=== PATIENT | female | born 1970 | race Caucasian/White ===

== ENCOUNTER → 2022-07-29 | Outpatient (CLI) | payer SELFPAY ==
[2022-07-29 15:51] LABS: Hematocrit 36.6 % (37-47); Hemoglobin 11.4 g/dL (12.0-15.0); Mean Corp Hgb Conc 31.1 g/dL (32-36); Mean Corpuscular Hgb 24.1 pg (27.0-32.0); Mean Corpuscular Volume 77.4 fL (81-99); Mean Platelet Vol. 9.2 fl (6.2-12.0); Platelet Count 210 K/mm3 (150-450); RBC Distribution Width CV 15.9 % (11.6-14.6); RBC Distribution Width SD 44.9 fl (35.1-43.9); Red Blood Count 4.73 M/mm3 (4.2-5.4); White Blood Count 4.8 K/mm3 (4.4-11.0)
[2022-07-29 16:11] LABS: Follicle Stimulating Hormone 24.1 mIU/mL; T4 Free Direct 0.77 ng/dL (0.76-1.46); Thyroid Stim Hormone (TSH) 1.31 uIU/mL (0.358-3.74)
[2022-08-08 14:16] LABS: HPV APTIMA, High Risk Negative (Negative)
== END | disposition home or self-care (01) ==
PROVIDERS: Visit Provider Student in an Organized Health Care Education/Training Program
DX: N93.9 Abnormal uterine and vaginal bleeding, unspecified (principal); Z12.4 Encounter for screening for malignant neoplasm of cervix
CPT/HCPCS: 36415; 83001; 83002; 84439; 84443; 85027; 87624; 88175; G0145

== ENCOUNTER → 2022-08-25 | Outpatient (CLI) | payer SELFPAY ==
[2022-09-01 16:30] LABS: HPV APTIMA, High Risk Negative (Negative)
== END | disposition home or self-care (01) ==
PROVIDERS: Visit Provider Student in an Organized Health Care Education/Training Program
DX: N93.9 Abnormal uterine and vaginal bleeding, unspecified (principal)
CPT/HCPCS: 87624; 88175; G0145

== ENCOUNTER 2022-11-26 05:22 | Day surgery (SDC) | payer SELFPAY, OTHER ==
--- NOTE | 2022-11-23 08:40 | EKG12_ITS ---
Test Reason : PRE-OP Blood Pressure : / mmHG Vent. Rate : 085 BPM Atrial Rate : 085 BPM P-R Int : 162 ms QRS Dur : 078 ms QT Int : 372 ms P-R-T Axes : 052 069 004 degrees QTc Int : 442 ms Normal sinus rhythm Normal ECG Confirmed by MYKE QUIGLEY, ALIX ([id number]), acquisition editor PRINCE ZEE ([id number]) on 11/25/2022 2:07:31 PM Referred By: Idalia Morrell Confirmed By:ALIX STRINGER MD
[2022-11-23 09:34] LABS: Magnesium 2.2 mg/dL (1.6-2.6)
[2022-11-23 10:35] LABS: Hematocrit 36.5 % (37-47); Hemoglobin 11.4 g/dL (12.0-15.0); Mean Corp Hgb Conc 31.2 g/dL (32-36); Mean Corpuscular Hgb 23.7 pg (27.0-32.0); Mean Corpuscular Volume 75.9 fL (81-99); Mean Platelet Vol. 8.9 fl (6.2-12.0); Platelet Count 285 K/mm3 (150-450); RBC Distribution Width CV 16.7 % (11.6-14.6); RBC Distribution Width SD 45.3 fl (35.1-43.9); Red Blood Count 4.81 M/mm3 (4.2-5.4); White Blood Count 8.6 K/mm3 (4.4-11.0)
[2022-11-26] VITALS (10 sets, daily range): BP systolic 103–140; BP diastolic 55–89; PULSE 76–85; RESP 14–18; TEMP 36.2–37.1; O2SAT 94–100; BMI 37.7
--- NOTE | 2022-11-26 | HYST_PTH ---
PATIENT: ZION VÁZQUEZ [place] [facility] [place] U#:[id number] AGE/SX: 52/F ROOM: RE11/26/[address]: Dr. Idalia Morrell, : 1970 BED: DIS: 11/26/2022 SPEC #: [id number] RECD: 11/26/22 13:19 STATUS: JENNIFER ALCIDES #: [id number] GERRY: 11/26/22 00:[address]: Idalia Morrell DEPT: SURGICAL PATHOLOGY RECD BY: Leonel Carr ENTERED: 11/26/22 13:19 SP TYPE: HYSTERECT OTHR DR: MD Dr. Mani Swift MD Tissues: Uterus, NOS Procedures: Surgery Specimen Level V HEADER OPERATION: ERAS, hysterectomy, TLH, bilateral salpingectomy, cysto, uterosacral ligament suspension PRE-OP DIAGNOSIS: Abnormal uterine bleeding and posterior vaginal prolapse TISSUE SUBMITTED: Cervix, uterus and bilateral fallopian tubes MICROSCOPIC DIAGNOSIS Cervix, uterus and bilateral fallopian tubes, hysterectomy and bilateral salpingectomy: Cervix ? chronic cystic cervicitis. Endometrium ? secretory endometrium. Myometrium ? intramural leiomyomas (0.6 and 1.7 cm in greatest dimension). - Focal adenomyosis. Bilateral fallopian tubes - no pathologic diagnosis. SJ:preston 11/27/2022 MICROSCOPIC DESCRIPTION Slides are reviewed. GROSS DESCRIPTION Received in fixative is one container labeled with the patient's name and designated uterus. The specimen consists of a uterus with attached cervix measuring 12 x 10.5 x 5 cm and weighing 564 gm. The ectocervix is unremarkable. The endocervical canal measures 3.7 cm in length and is grossly unremarkable. The triangular endometrial cavity measures 5.5 x 4.5 cm. The endometrium is light carlson and measures up to 0.2 cm in thickness. The myometrium measures 2.5 cm in average thickness and contains two firm, rubbery nodules ranging in size from 0.6 to 1.7 cm and grossly resembling leiomyomas. The thickened myometrial wall is consistent with adenomyosis. Present free in the container are two fallopian tubes with normal fimbrial ends averaging 5.5 cm in length and 0.7 cm in diameter. Nurse Transitional sections are submitted in ten cassettes as follows: 1 - anterior cervix, 2 - posterior cervix, 3 & 4 - anterior myometrial wall, 5-7 - posterior myometrial wall, 8 - myometrial nodules, 9 - one fallopian tube, 10 - the other fallopian tube. / AM:preston 11/26/2022 TC:1 CPT: 47472
[2022-11-26 06:06] LABS: Internal QC Validated? YES +Cl - CLEAR BKGD; Pregnancy, Urine Negative Negative
[2022-11-26] MEDS: Lactated Ringers 1,000 ML 40 ML IV ×2 (06:23→12:31)
[2022-11-26] MEDS: dexAMETHasone 10 MG/ML Vial 8 MG IV (06:26)
[2022-11-26] MEDS: Gabapentin 600 MG Tablet PO (06:28)
[2022-11-26] MEDS: Acetaminophen 500 MG Tablet 1000 MG PO (06:28)
[2022-11-26 06:30] LABS: Bedside Glucose 177 mg/dL (74-106)
--- NOTE | 2022-11-26 07:19 | HP.PCM.OB_ITS ---
History and Physical Date of Admission: 11/26/22 HPI: 52-year-old female with persistent abnormal uterine bleeding and posterior vaginal prolapse. Plan for total laparoscopic hysterectomy bilateral salpingectomy, uterosacral ligament suspension, posterior repair, cystoscopy. Denies headache or vision changes, chest pain or shortness of breath, nausea or vomiting, diarrhea constipation, fevers or chills. 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 history: G5, P5 Medical history: denies Surgical history: Denies Family history: Cancers, noncontributory Allergies: No known drug allergies Medications: None Social history: Denies tobacco, alcohol, drug use Review of system: Negative otherwise stated above Physical exam: Blood pressure 140/89, heart rate 79, respiratory rate 16, temp 98.7 ?F General: No acute distress HEENT: Normal cephalic/atraumatic, PERRLA Cardiac: Regular rate and rhythm Respiratory: Clear to auscultation bilaterally Abdomen: Soft, nontender, nondistended Extremities: No edema Neurologic: Cranial nerves II through XII grossly intact, no focal deficits Musculoskeletal: Strength out of 5 throughout all extremities Assessment/plan: 52-year-old female with persistent abnormal uterine bleeding and posterior vaginal prolapse. Plan for total laparoscopic hysterectomy bilateral salpingectomy, uterosacral ligament suspension, posterior repair, cystoscopy. All risk, benefits, alternatives discussed with patient: Risk include but are not limited to: Risk of bleeding when transfusion, infection, injury to surrounding tissue including bowel/bladder/major abdominal vessels, VTE, ICU admission. Patient aware and consented.
[2022-11-26] MEDS: Cefazolin 2 GM in 0.9% Normal Saline 100 ML IV (07:30)
--- NOTE | 2022-11-26 07:37 | DCINST_ITS ---
Discharge Instructions Diet Discharge Diet: No restrictions Activity Discharge Activity: Return to Normal Activity and May Shower May resume sexual activity in: 6 weeks Weight Bearing Status: Weight bearing as tolerated Lifting Restrictions: No greater than 10 pounds Dressing / Incision Call your doctor if your incision/area has: Continuous Slow Oozing, Increased Redness and Foul Smelling Discharge Call your doctor if you observe: Fever of 101 or Higher, Inability to urinate, Inability to have a bowel movement, Using more than 1 pad per hour, Shortness of breath, Swelling in the ankles, Chest pain and Uncontrolled pain Cleanse incision/area with: Soap & Water and Keep Dressing Clean & Dry Follow Up Care Please Follow Up With: Idalia Morrell DO When: 2 weeks post operative appointment Test Results: Test results from this visit will be discussed in further detail at your follow- up appointment, if applicable. Discharge Plan Admission Primary Reason for Your Visit: Hysterectomy Attending Provider: Idalia Morrell Primary Care Provider: Mani De Consulting Providers: Abdiel Cerrato Discharge Orders/Prescriptions Prescriptions: New oxycodone 5 mg tablet 5 mg PO Q6H PRN (Reason: pain (scale score 7-10)) 5 Days Qty: 24 0RF Continued multivitamin Tablet 1 tab PO DAILY alprazolam [Xanax] 0.5 mg Tablet 0.5 mg PO BID PRN (Reason: Anxiety) Referrals / Follow Up: Mani De MD [Primary Care Provider] - Disposition Disposition (needs filled in before D/C Order can be placed): Home, Self Care
--- NOTE | 2022-11-26 07:37 | OP.PCM_ITS ---
Report of Operation Date of Procedure: 11/26/22 Pre-Operative Diagnosis: Abnormal uterine bleeding, posterior prolapse. Post-Operative Diagnosis: Abnormal uterine bleeding, posterior prolapse. Surgery/Procedure Performed:: Total laparoscopic hysterectomy, bilateral salpingectomy, drainage of left ovarian cyst, uterosacral ligament suspension, posterior repair, cystoscopy Description of Surgical Findings:: Normal-appearing external genitalia. Moderate uterine descensus. Grade 2 posterior prolapse. Normal-appearing bilateral fallopian tubes. Enlarged uterus. Simple left ovarian cyst. Normal ovaries. Large amount of visceral fat. Type of Anesthesia: General Specimen's removed: Uterus, cervix, bilateral fallopian tubes Estimated Blood Loss (mL): 100 cc Fluids Replaced: 1400 cc Description of Procedure: Indication/risk/benefits: 52-year-old female with persistent abnormal uterine b leeding and posterior vaginal prolapse.? Plan for total laparoscopic hysterectomy bilateral salpingectomy, uterosacral ligament suspension, posterior repair, cystoscopy.?All risk, benefits, alternatives discussed with patient: Risk include but are not limited to: Risk of bleeding when transfusion, infection, injury to surrounding tissue including bowel/bladder/major abdominal vessels, VTE, ICU admission.? Patient aware and consented. Procedure: Patient taken the operating room and placed under general anesthesia. Patient placed in the dorsal lithotomy position and prepped and draped in the u suwi sterile fashion. Cerda catheter placed. Weighted speculum placed in posterior vagina and Amado retractor used to visualize the cervix. Anterior lip of the cervix grasped with single-tooth tenaculum. Cervix sequentially dilated, sounded to 11 cm. 2 [id number]'s stitches placed at the 3 and 9 o'clock position on the cervix. Medium manipulator placed. Weighted speculum removed. Gloves were changed and attention turned to the anterior abdominal wall. 1 cm vertical supraumbilical incision made with scalpel and underlying subcutaneous tissue dissected away from fascia bluntly. Fascia grasped with 2 Fern clamps and incised medially. Fascia tagged at either side with suture. Peritoneum entered bluntly. Trocar placed. Abdomen insufflated. Right and left trocars placed under direct visualization. Bilateral ureters identified. Bilateral fallopian tubes identified from the fimbria to the cornua. Left fallopian tube grasped and removed along the mesosalpinx using LigaSure device. Right fallopian tube grasped and removed along the mesosalpinx using LigaSure device. Left round ligament incised using monopolar cautery. Anterior leaf of the broad ligament dissected towards the vesicouterine peritoneum. Left ovarian simple cyst was incised with monopolar cautery and drained clear fluid. Left utero- ovarian ligament coagulated and incised with bipolar cautery. Right round ligament incised using monopolar cautery. Anterior leaf of the broad ligament further dissected towards the vesicouterine peritoneum. Right utero-ovarian ligament coagulated and incised using bipolar cautery. Uterus retroverted and dissection of the vesicouterine peritoneum away from the anterior cervix was completed, allowing bladder to fall away from the cervix. Right uterine arter ies coagulated and cut using bipolar cautery. Left uterine artery was coagulated cut using bipolar cautery in a similar fashion. Right uterine artery was further dissected away from the cervix and colpotomy cup using a straight, parallel dissection plane. Left uterine arteries were dissected away from the cervix and colpotomy cup in a similar fashion. Colpotomy started anteriorly and carried circumferentially. Uterus removed through the vagina. Attention turned to the vagina. Uterosacral ligaments were grasped and suture placed through the uterosacral ligaments and posterior cul-de-sac. Suture was taken through the vaginal cuff and tied. Vaginal cuff sutured closed with running locking stitch from each angle, tying in the middle. Posterior repair was then completed. Posterior vagina grasped with 2 Allis clamps and lidocaine with epinephrine was injected along the dissection plane. Scalpel was used to incise the vaginal epithelium between the 2 Allis clamps. Dissection of the vaginal rectal fascia away from the vaginal epithelium was completed with sharp dissection using Metzenbaum scissors as well as blunt dissection. Once adequate dissection was completed, interrupted horizontal mattress sutures were placed along the fascia. Excess vaginal epithelium was removed with Metzenbaum scissors. Vaginal epithelium was then reapproximated with a running locking stitch. Hemostasis noted after vagina was irrigated. Cerda catheter was endoscopy completed. Cystoscopy noted intact bladder dome and bilateral ureteral jets. Cystoscope removed. Abdomen then reinsufflated. Pelvis was suction irrigated. Minimal amount of oozing was noted at the vaginal cuff and bladder pillars. Hemostatic with Tu placement along this area. Abdomen was desufflated and trocars were removed. Fascia at the supraumbilical incision closed with a running stitch. Skin closed with subcutaneous stitch and skin glue at all 3 trocar sites. After removing drapes, bleeding was noted from the vagina. On inspection there is noted to be coming from the suture line of the posterior repair. No bleeding from the vaginal cuff. Patient was repeat draped and an imbricating stitch of the vagina at the posterior repair was completed. Hemostasis confirmed. UOP: 500cc Complications none
[2022-11-26] MEDS: Lidocaine 1% /Epi 1:100 (20ml) 20 ML Vial (10:00)
[2022-11-26] MEDS: Ondansetron 4 MG/2 ML Vial IV (10:15)
== END 2022-11-26 15:10 | disposition home or self-care (01) ==
LOC: SDC 05:26 → AC 05:27
PROVIDERS: Anesthesiology; PCP Family Medicine; Referring Provider Student in an Organized Health Care Education/Training Program; Visit Provider Student in an Organized Health Care Education/Training Program
PROC: 0UT94ZZ Resection of Uterus, Percutaneous Endoscopic Approach (ICD-10-PCS; CPT 58573; principal; 2022-11-26 07:10)
DX: N93.9 Abnormal uterine and vaginal bleeding, unspecified (principal); N81.4 Uterovaginal prolapse, unspecified; N83.202 Unspecified ovarian cyst, left side; N72 Inflammatory disease of cervix uteri; D25.1 Intramural leiomyoma of uterus
CPT/HCPCS: 58573; 57425; 52000; 00840; 36415; 81025; 82962; 83735; 85027; 86850; 86900; 86901; 88307; 93005; J7120; J2405; J3475